=== PATIENT | male | born 1970 | race Caucasian/White ===

== ENCOUNTER 2023-12-21 16:32 | Inpatient (IN) | payer OTHER ==
[~2023-12-21] VITALS: Ht 180.3 cm; Wt 85.0 kg
[~2023-12-21 16:32] MED LIST: LANT500T7 PO; LEVAHFA IH; PARI1CAP11 PO; TAMS0.4C94 PO
[2023-12-21 18:02] LABS: BASOPHILS % (AUTO) 0.8 % (0.0-2.0); EOSINOPHILS % (AUTO) 2.6 % (1.0-6.0); HEMATOCRIT 34.5 % (41-53); HEMOGLOBIN 11.4 g/dL (13.5-17.5); LYMPHOCYTES # (AUTO) 2.5 K/uL (1.0-4.8); LYMPHOCYTES % (AUTO) 33.4 % (22.0-44.0); MEAN CORPUSCULAR HEMOGLOBIN 30.7 pg (26.0-34.0); MEAN CORPUSCULAR HGB CONC 33.1 G/dL (31.0-37.0); MEAN CORPUSCULAR VOLUME 93 fL (80-100); MONOCYTES # (AUTO) 0.9 K/uL (0.1-1.0); MONOCYTES % (AUTO) 12.4 % (2.0-9.0); NEUTROPHILS # (AUTO) 3.9 K/uL (1.8-7.7); NEUTROPHILS % (AUTO) 50.8 % (40.0-70.0); PLATELET COUNT (AUTO) 233 K/uL (150-450); RED BLOOD CELL COUNT(AUTO) 3.72 MIL/uL (4.50-5.90); WHITE BLOOD COUNT (AUTO) 7.6 K/uL (4.5-11.0)
[2023-12-21 18:11] LABS: CALCIUM, TOTAL 9.6 mg/dL (8.8-10.5); CREATININE 10.61 mg/dL (0.60-1.30); POTASSIUM 4.5 mmol/L (3.5-5.1)
[2023-12-21 18:20] LABS: TROPONIN I-HIGH SENSITIVITY 9 ng/L (<76)
[2023-12-21] MEDS ORDERED: ONDANSETRON HCL 4 MG/2 ML VIAL IVP PRN (19:30)
[2023-12-21] MEDS ORDERED: ACETAMINOPHEN 325 MG TABLET PO PRN (19:30)
[2023-12-21] MEDS: DOCUSATE SODIUM 100 MG CAPSULE PO SCH (21:00)
[2023-12-21 23:05] VITALS: BP 141/77; PULSE 63; RESP 18; TEMP 98; O2SAT 99
[2023-12-21] MEDS: HEPARIN SODIUM,PORCINE 5,000 UNITS/ML VIAL SQ SCH (23:14)
[2023-12-22] VITALS (11 sets, daily range): BP systolic 116–127; BP diastolic 58–81; PULSE 61–72; RESP 18–19; TEMP 97.3–97.7; O2SAT 95–98
[2023-12-22 07:49] LABS: BASOPHILS % (AUTO) 0.9 % (0.0-2.0); EOSINOPHILS % (AUTO) 2.6 % (1.0-6.0); HEMATOCRIT 32.9 % (41-53); HEMOGLOBIN 11.2 g/dL (13.5-17.5); LYMPHOCYTES # (AUTO) 2.5 K/uL (1.0-4.8); LYMPHOCYTES % (AUTO) 29.5 % (22.0-44.0); MEAN CORPUSCULAR HEMOGLOBIN 31.3 pg (26.0-34.0); MEAN CORPUSCULAR VOLUME 92 fL (80-100); MONOCYTES # (AUTO) 0.8 K/uL (0.1-1.0); MONOCYTES % (AUTO) 9.3 % (2.0-9.0); NEUTROPHILS # (AUTO) 4.9 K/uL (1.8-7.7); NEUTROPHILS % (AUTO) 57.7 % (40.0-70.0); PLATELET COUNT (AUTO) 224 K/uL (150-450); RED BLOOD CELL COUNT(AUTO) 3.57 MIL/uL (4.50-5.90); WHITE BLOOD COUNT (AUTO) 8.5 K/uL (4.5-11.0)
[2023-12-22 07:55] LABS: CALCIUM, TOTAL 9.3 mg/dL (8.8-10.5); CREATININE 11.37 mg/dL (0.60-1.30); MAGNESIUM 2.7 mg/dL (1.80-2.40); POTASSIUM 4.8 mmol/L (3.5-5.1)
[2023-12-22] MEDS: LANTHANUM CARBONATE 500 MG CHEW TABLET PO SCH (08:16)
[2023-12-22] MEDS: TAMSULOSIN HCL 0.4 MG CAPSULE PO SCH (08:17)
[2023-12-22] MEDS ORDERED: SODIUM CHLORIDE 0.9% 2,000 ML ONE (09:43)
== END 2023-12-22 21:00 | DRG 682 ==
LOC: EMS 16:32 → EDH 19:20 → 6S 22:54
PROVIDERS: ADMIT Internal Medicine; ATTEND Internal Medicine
PROC: 5A1D70Z Performance of Urinary Filtration, Intermittent, Less than 6 Hours Per Day (ICD-10-PCS; principal; 2023-12-22)
DX: I12.0 Hypertensive chronic kidney disease with stage 5 chronic kidney disease or end stage renal disease (principal); N18.6 End stage renal disease; N02.B1 Recurrent and persistent immunoglobulin A nephropathy with glomerular lesion; D63.1 Anemia in chronic kidney disease; J45.909 Unspecified asthma, uncomplicated; N40.0 Benign prostatic hyperplasia without lower urinary tract symptoms; E78.5 Hyperlipidemia, unspecified; Z99.2 Dependence on renal dialysis; Z88.8 Allergy status to other drugs, medicaments and biological substances; Z79.899 Other long term (current) drug therapy
CPT/HCPCS: 80048; 83735; 84484; 85025; 87081; 87340; 90935; 93005; 99285; J1644; J7030